=== PATIENT | male | born 1950 | race Caucasian/White ===

== ENCOUNTER 2024-03-31 12:46 | Emergency (ER) | payer OTHER ==
[~2024-03-31] VITALS: Ht 172.7 cm; Wt 86.2 kg
[2024-03-31 12:56] VITALS: BP_SYST 140; PULSE 79; RESP 16; TEMP 98.2; O2SAT 93
[2024-03-31] MEDS ORDERED: ESCI-6 PO (15:05)
[2024-03-31] MEDS ORDERED: ATOR20TA64 PO (15:05)
[2024-03-31] MEDS ORDERED: LISI1TAB53 PO (15:05)
[2024-03-31] MEDS ORDERED: OMEP20CA15 PO (15:07)
[2024-03-31 15:47] LABS: BILIRUBIN,URINE NEGATIVE (NEGATIVE); BLOOD, URINE NEGATIVE (NEGATIVE); CLARITY/URINE CLEAR (CLEAR); COLOR,URINE YELLOW (YELLOW); GLUCOSE,URINE NEGATIVE (NEGATIVE); KETONES,URINE NEGATIVE (NEGATIVE); LEUKOCYTE ESTERASE ,URINE NEGATIVE (NEGATIVE); NITRITE, URINE NEGATIVE (NEGATIVE); PROTEIN URINE NEGATIVE (NEGATIVE); UROBILINOGEN,URINE 0.2 (0.2-1.0)
[2024-03-31 16:32] LABS: BASOPHILS % (AUTO) 0.4 % (0.0-2.0); EOSINOPHILS # (AUTO) 0.1 K/uL (0.0-0.4); HEMATOCRIT 45.6 % (36-54); HEMOGLOBIN 15.8 g/dL (14.0-18.0); LYMPHOCYTES # (AUTO) 2.2 K/uL (1.0-5.5); LYMPHOCYTES % (AUTO) 21.1 % (20.5-51.5); MEAN CORPUSCULAR HEMOGLOBIN 33 pg (27-31); MEAN CORPUSCULAR HGB CONC 35 % (32-36); MEAN CORPUSCULAR VOLUME 95 fL (79.0-98.0); MONOCYTES # (AUTO) 0.9 K/uL (0.0-1.0); MONOCYTES % (AUTO) 8.9 % (1.7-9.3); NEUTROPHILS % (AUTO) 68.6 % (40.0-70.0); PLATELET COUNT (AUTO) 267 K/uL (130-430); RED BLOOD CELL COUNT(AUTO) 4.83 MIL/uL (4.2-6.2); RED CELL DISTRIBUTION WIDTH 13.7 % (9.0-15.0); WHITE BLOOD COUNT (AUTO) 10.2 K/uL (4.8-10.8)
[2024-03-31 16:56] LABS: ANION GAP 7 (5-15); CALCIUM 9.4 mg/dL (8.4-11.0); CARBON DIOXIDE 31 mmol/L (23-29); CHLORIDE 102 mmol/L (98-107); CREATINE KINASE, TOTAL 125 U/L (39-308); CREATININE 0.81 mg/dL (0.55-1.30); GLUCOSE 85 mg/dL (74-106); POTASSIUM 3.5 mmol/L (3.5-5.1); SODIUM SERUM 140 mmol/L (136-145); UREA NITROGEN, BLOOD 22 mg/dL (8-21)
[2024-03-31 17:04] LABS: PROTHROMBIN TIME 10.8 SECS (9.5-12.5)
[2024-03-31] MEDS ORDERED: ASPI-1393 PO (17:45)
[2024-03-31] MEDS ORDERED: MECL-261 PO (17:45)
[2024-03-31 17:55] VITALS: BP_SYST 115; PULSE 73; RESP 20; TEMP 98; O2SAT 93
== END 2024-03-31 17:54 | disposition home or self-care (01) ==
LOC: SED 12:46
DX: R42 Dizziness and giddiness (principal); R11.0 Nausea; I10 Essential (primary) hypertension; Z79.899 Other long term (current) drug therapy; Z79.2 Long term (current) use of antibiotics
CPT/HCPCS: 36415; 70450-TC; 71045; 80048; 81001; 81003; 82550; 82948; 84484; 85025; 85610; 85730; 93005; 99285